=== PATIENT | male | born 1975 | race African-American/Black ===

== ENCOUNTER 2018-10-12 08:26 | Emergency (ER) | payer OTHER ==
[~2018-10-12] VITALS: Ht 188 cm; Wt 9.0 kg
[2018-10-12] MEDS ORDERED: IBUPROFEN 600MG TABLET PO ONE (09:15)
[2018-10-12 09:31] VITALS: BP 132/86
== END 2018-10-12 09:32 | disposition home or self-care (01) ==
LOC: ER 08:26
DX: S46.911A Strain of unspecified muscle, fascia and tendon at shoulder and upper arm level, right arm, initial encounter (principal); M25.551 Pain in right hip; J45.909 Unspecified asthma, uncomplicated; V43.52XA Car driver injured in collision with other type car in traffic accident, initial encounter; Y93.89 Activity, other specified; Y92.488 Other paved roadways as the place of occurrence of the external cause
CPT/HCPCS: 99283